=== PATIENT | male | born 1940 | race Caucasian/White ===

== ENCOUNTER 2016-06-22 13:56 | Emergency (ER) | payer MEDICARE, OTHER ==
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
[2016-06-22 18:00] VITALS: BP 161/89; TEMP 97.5; O2SAT 95
== END 2016-06-22 16:25 | disposition home or self-care (01) ==
LOC: ER 13:56
DX: S00.93XA Contusion of unspecified part of head, initial encounter (principal); Z88.3 Allergy status to other anti-infective agents; Z88.0 Allergy status to penicillin; Z88.8 Allergy status to other drugs, medicaments and biological substances; Z79.02 Long term (current) use of antithrombotics/antiplatelets; Z86.711 Personal history of pulmonary embolism; Z86.718 Personal history of other venous thrombosis and embolism; Z87.891 Personal history of nicotine dependence; W22.8XXA Striking against or struck by other objects, initial encounter

== ENCOUNTER → 2016-08-09 | Outpatient (CLI) | payer MEDICARE, OTHER | END | disposition home or self-care (01) | LOC: GMA 14:25 | PROVIDERS: ATTEND Nurse Practitioner Acute Care | DX: L02.416 Cutaneous abscess of left lower limb (principal) ==

== ENCOUNTER → 2016-10-28 | Outpatient (CLI) | payer MEDICARE, OTHER | END | disposition home or self-care (01) | LOC: GMAM 14:41 | PROVIDERS: ATTEND Family Medicine | DX: E34.9 Endocrine disorder, unspecified (principal) ==

== ENCOUNTER → 2017-01-20 | Outpatient (CLI) | payer MEDICARE, OTHER | END | disposition home or self-care (01) | LOC: GMA 11:26 | PROVIDERS: ATTEND Nurse Practitioner Acute Care | DX: M06.9 Rheumatoid arthritis, unspecified (principal); E53.9 Vitamin B deficiency, unspecified; I10 Essential (primary) hypertension; D64.9 Anemia, unspecified; R42 Dizziness and giddiness; E55.9 Vitamin D deficiency, unspecified; D51.3 Other dietary vitamin B12 deficiency anemia ==

== ENCOUNTER → 2017-06-16 | Outpatient (CLI) | payer MEDICARE, OTHER ==
--- NOTE | 2017-06-16 12:48 | MRI ---
EXAM DESCRIPTION: Lumbar Spine w/o Contrast MRI. CLINICAL HISTORY: RADICULOPATHY COMPARISON: MRI scan lumbar spine 02/24/2010. TECHNIQUE: Multiplanar, multiple standard sequences, non contrast MRI, lumbar spine. FINDINGS: L5-S1: Disc desiccation and anterior bulging. Posterior disc space loss and Modic type II endplate reactive changes. Grade 1 anterolisthesis. Posterior midline disc osteophyte bulge 4 mm abutting the thecal sac. Lateral recess stenosis on the right. Disc bulges into the bilateral foramina with stenosis more severe on the left. Impingement exiting left L5 nerve. Posterior flavum ligament hypertrophy. Moderate canal narrowing. L4-5: Disc desiccation and moderate disc space loss. Anterior bulging and endplate ridging. Posterior midline and right paramedian Modic type II endplate reactive changes. Posterior bilateral ligament hypertrophy more on the left. Moderate left foraminal narrowing. Severe right foraminal stenosis secondary to disc osteophyte complex encroachment with impingement exiting right L4 nerve. Superior L4 Schmorl's node. L3-4: Disc desiccation and posterior disc space loss. Anterior bulging and endplate ridging. Inferior L3 central Schmorl's node. Posterior broad-based disc bulge with midline 5 mm protrusion abutting the thecal sac. Bulge causing right lateral stenosis and impingement of the descending right L4 nerve. Bilateral ligament hypertrophy and mild central canal stenosis. Disc bulging of the right foramen with moderate narrowing. Mild to moderate narrowing left foramen with disc bulge. L2-3: Moderate disc space loss and disc desiccation. Large anterior bulge and endplate ridging. Schmorl's nodes larger inferior L2 and superior L3. Posterior midline Modic type II endplate reactive changes. Posterior broad-based 4 mm disc bulge abutting the thecal sac small right paracentral 5 mm protrusion abutting the thecal sac and the descending right L3 nerve encroaching on the lateral recess. Disc bulge into the bilateral foramina with moderate narrowing. Minimal flavum ligament hypertrophy bilaterally and effacement of the subarticular recesses. Stable nodular density focus posterior L2 vertebral body. L1-2: Mild disc desiccation and anterior bulging. Disc space preserved with no posterior bulging. Posterior elements unremarkable. Canal and foramina are patent. Conus terminates at L1. T12-L1: Minimal disc desiccation and disc space loss. Anterior bulging with endplate ridging. Posterior elements are negative. Canal and foramina are patent. Paravertebral soft tissues paraspinal muscle atrophy.. Normal marrow signal in the remaining vertebral bodies and the posterior elements. Vertebral bodies are not compressed at any level. IMPRESSION: 1. Spondylosis has increased at L5-S1 since the prior study. Bilateral foraminal stenosis is progressed especially on the left. Impinging the exiting left L5 nerve. 2. Progressive spondylosis posterior midline and right endplate margins at L4-5 since the prior study. Right foraminal stenosis is progressed since the prior study with impingement exiting right L4 nerve. Schmorl's nodes. 3. Progressive endplate changes at L3-4 since the prior study with increased disc space narrowing and enlarging posterior disc bulge and protrusion. Progressive stenosis right lateral recess and impingement descending right L4 nerve. 4. Endplate changes at L2-3 showing slight progression since the prior study. Posterior broad-based bulge and encroachment on the right lateral recess and descending right L3 nerve is stable. Electronically signed by: Nathaniel Ariza MD 06/16/2017 12:48 PM [facility]
== END ==
LOC: MRI 10:00
PROVIDERS: ATTEND Family Medicine
DX: M54.16 Radiculopathy, lumbar region (principal); M48.062 Spinal stenosis, lumbar region with neurogenic claudication; M47.896 Other spondylosis, lumbar region; M25.551 Pain in right hip

== ENCOUNTER → 2017-08-25 | Outpatient (CLI) | payer MEDICARE, OTHER | LOC: GMAM 10:44 | PROVIDERS: ATTEND Family Medicine | DX: D50.0 Iron deficiency anemia secondary to blood loss (chronic) (principal); E55.9 Vitamin D deficiency, unspecified; I10 Essential (primary) hypertension; R73.9 Hyperglycemia, unspecified; Z12.5 Encounter for screening for malignant neoplasm of prostate | CPT/HCPCS: 82306; 82728; 83540; 83550; G0103 ==

== ENCOUNTER 2017-09-01 23:10 | Emergency (ER) | payer MEDICARE ==
[2017-09-01 23:31] VITALS: TEMP 97.6
[2017-09-01] MEDS ORDERED: methylPREDNISolone SODIUM SUC 125 MG/2 ML VIAL IM ONE (23:41)
--- NOTE | 2017-09-01 23:45 | ED.PDOC ---
History of Present Illness - General Chief Complaint: Allergic Reaction Stated Complaint: allergic reaction Time Seen by Provider: 09/01/17 23:40 Source: patient Exam Limitations: no limitations - History of Present Illness Initial Comments: THIS PATIENT IS HERE BECAUSE OF AN ALLERGIC REACTION. EVIDENTLY HE HAS DEVELOPED AN OLECRANON BURSITIS EN THE LEFT ELBOW AND WAS GIVEN INITIALLY BACTRIM DS. HE DEVELOPED AN ALLERGY. HIS DOCTOR CHANGED IT TO Z-PACK AND AFTER THE FIRST TWO INITIAL PILLS HE DEVELOPED A RASH ON THE TRUNCK. HE IS NOW ITCHING AND C/O OF ALLERGIC REACTION. Timing/Duration: 1 week Severity: moderate Improving Factors: nothing Worsening Factors: nothing Associated Symptoms: denies symptoms Allergies/Adverse Reactions: Allergies Azithromycin [From Zithromax] Allergy (Verified 09/01/15 11:38) Cephalexin [From Keflex] Allergy (Verified 09/01/15 11:36) Lisinopril Allergy (Verified 09/01/15 11:37) Metoprolol [From Toprol XL] Allergy (Verified 06/22/16 14:17) Monosodium Glutamate Allergy (Verified 06/22/16 14:17) Pantoprazole [From Protonix] Allergy (Verified 09/01/15 11:37) Penicillins Allergy (Verified 06/22/16 14:17) Anaphylaxis Meperidine [From Demerol HCl] Adverse Reaction (Intermediate, Verified 06/22/16 14:17) Other Makes him "go crazy" Magnesium Salicylate [From Msg] Adverse Reaction (Mild, Verified 06/22/16 14:17) Elevates BP Rosuvastatin [From Crestor] Adverse Reaction (Verified 06/22/16 14:17) elevated BP Home Medications: Ambulatory Orders Prednisone [Leonel] 5 mg PO BID 11/06/12 Rivaroxaban [Xarelto] 10 mg PO DAILY 05/21/13 Cholecalciferol [D3 2000] 6,000 unit PO DAILY 09/01/15 Testosterone Cypionate [Depo-Testosterone] 50 mg IM WKLY 09/01/15 Prednisone [Deltasone] 20 mg PO DAILY 10 Days tab 09/01/17 hydrOXYzine HCl [Atarax] 25 mg PO BID #10 tab 09/01/17 Review of Systems - Review of Systems Constitutional: States: no symptoms reported EENTM: States: mouth swelling Respiratory: States: no symptoms reported Cardiology: States: no symptoms reported Gastrointestinal/Abdominal: States: no symptoms reported Genitourinary: States: no symptoms reported Musculoskeletal: States: no symptoms reported Skin: States: rash Neurological: States: no symptoms reported Endocrine: States: no symptoms reported Hematologic/Lymphatic: States: no symptoms reported Past Medical History (General) - Patient Medical History Hx Seizures: No Hx Stroke: No Hx Dementia: No Hx Asthma: No Hx of COPD: No Hx Cardiac Disorders: No Hx Congestive Heart Failure: No Hx Pacemaker: No Hx Hypertension: Yes Hx Thyroid Disease: No Hx Diabetes: No Hx Gastroesophageal Reflux: No Hx Renal Disease: No Hx Cancer: No Hx of HIV: No Hx Hepatitis C: No Hx MRSA: No - Vaccination History Hx Tetanus, Diphtheria Vaccination: Yes - 2017 Hx Influenza Vaccination: Yes Hx Pneumococcal Vaccination: Yes - Social History Hx Tobacco Use: Yes Hx Chewing Tobacco Use: No Hx Alcohol Use: Yes Hx Substance Use: No Hx Substance Use Treatment: No Hx Depression: No Hx Physical Abuse: No Hx Emotional Abuse: No Hx Suspected Abuse: No Family Medical History - Family History Father Living Status: Hx Family Cancer: Yes - colon Mother Family History: No Known Physical Exam - Physical Exam General Appearance: Alert, Restless, Well Developed, Well Groomed, Well Hydrated Eye Exam: bilateral normal Ears, Nose, Throat: hearing grossly normal, other - TONGUE HAS MINIMAL SWELLING Neck: non-tender Respiratory: chest non-tender Cardiovascular/Chest: normal peripheral pulses, no edema Peripheral Pulses: radial,right: 2+ Gastrointestinal/Abdominal: normal bowel sounds, non tender, soft, no organomegaly, no pulsatile mass Rectal Exam: deferred Back Exam: normal inspection Extremity: normal range of motion, non-tender, normal inspection Neurologic: no motor/sensory deficits, alert, normal mood/affect, oriented x 3 Skin Exam: rash - TO THE TRUNK Lymphatic: no adenopathy Departure - Departure Clinical Impression: Dermatitis medicamentosa Time of Disposition: 23:48 Disposition: Discharge to Home or Self Care Condition: Good Departure Forms: ED Discharge - Pt. Copy, Patient Portal Self Enrollment Instructions: DI for General Allergic Reactions Diet: resume usual diet Referrals: Hood Boston MD [Primary Care Provider] - 1-2 Weeks Prescriptions: hydrOXYzine HCl [Atarax] 25 mg PO BID #10 tab Prednisone [Deltasone] 20 mg PO DAILY 10 Days tab Home Medications: Ambulatory Orders Prednisone [Leonel] 5 mg PO BID 11/06/12 Rivaroxaban [Xarelto] 10 mg PO DAILY 05/21/13 Cholecalciferol [D3 2000] 6,000 unit PO DAILY 09/01/15 Testosterone Cypionate [Depo-Testosterone] 50 mg IM WKLY 09/01/15 Prednisone [Deltasone] 20 mg PO DAILY 10 Days tab 09/01/17 hydrOXYzine HCl [Atarax] 25 mg PO BID #10 tab 09/01/17
[2017-09-02 00:08] VITALS: BP 147/75; O2SAT 96
== END 2017-09-02 00:08 | disposition home or self-care (01) ==
LOC: ER 23:10
DX: L27.0 Generalized skin eruption due to drugs and medicaments taken internally (principal); T36.3X5A Adverse effect of macrolides, initial encounter; I10 Essential (primary) hypertension; Z87.891 Personal history of nicotine dependence

== ENCOUNTER → 2017-09-08 | Outpatient (CLI) | payer MEDICARE, OTHER | LOC: GMAM 14:24 | PROVIDERS: ATTEND Family Medicine | DX: E29.1 Testicular hypofunction (principal) ==

== ENCOUNTER → 2017-11-11 | Outpatient (CLI) | payer MEDICARE, OTHER | LOC: GMAM 11:54 | PROVIDERS: ATTEND Family Medicine | DX: E53.8 Deficiency of other specified B group vitamins (principal) ==

== ENCOUNTER → 2017-12-30 | Outpatient (CLI) | payer MEDICARE, OTHER | LOC: LAB.O 12:20 | PROVIDERS: ATTEND Orthopaedic Surgery | DX: Z01.818 Encounter for other preprocedural examination (principal) ==

== ENCOUNTER 2018-02-08 05:51 | Day surgery (SDC) | payer MEDICARE, OTHER ==
--- NOTE | 2018-01-09 07:58 | HP ---
CHIEF COMPLAINT: Left elbow pain. HISTORY OF PRESENT ILLNESS: Mr. Bergeron is a 77-year-old male with a swelling in the left elbow. He has had intermittent drainage from this that he says is on a daily basis. He says the drainage is clear in nature and he has never had any purulence or erythema. There is some occasional pain, but it is relatively minor. He has had compressive dressings on this area for olecranon bursitis, however, the wound has failed to close and he continues to have drainage. Because of the failure of it to close, he has requested operative intervention. After discussing the risks, benefits and alternatives to that, the patient has given informed consent for bursectomy with closure of wound. PAST SURGICAL HISTORY: None. MEDICATIONS: 1. Prednisone. 2. Xarelto. 3. Restoril. ALLERGIES: NO KNOWN DRUG ALLERGIES. CODE STATUS: Full code. IMMUNIZATIONS: Up to date. FAMILY HISTORY: None pertinent to today's complaint. SOCIAL HISTORY: The patient does not drink or use any illicit drugs. He does smoke. REVIEW OF SYSTEMS: Negative except as indicated in the History of Present Illness. PHYSICAL EXAMINATION: VITAL SIGNS: Blood pressure 152/86. Pulse 80. Height 5'10". Weight 144 pounds. MENTAL STATUS: The patient is awake, alert, and is able to give a good history and participate in the physical. The patient is oriented to person, place and time. SKIN: Normal tone and turgor. MUSCULOSKELETAL: He has no erythema or current drainage at the wound, but he does have an obvious punctate area that has had recent drainage. Today, he has no significant pain to palpation. The wound is 3 to 4 mm over the central portion of the olecranon. He maintains full range of motion of the elbow. Unit Coordinator strength is 5/5. Sensation is intact. ASSESSMENT: 1. Olecranon bursitis. PLAN: The plan at this point is for bursectomy. We have discussed the risks, benefits, and alternatives to that and the patient has given informed consent. #[id number] [facility]
--- NOTE | 2018-01-30 11:06 | HP ---
CHIEF COMPLAINT: Left elbow pain. HISTORY OF PRESENT ILLNESS: Mr. Bergeron is a 77-year-old male with a history of swelling in the left elbow. He has had intermittent drainage from that area. He says it is there on a daily basis. The drainage has always been clear to straw-colored. He has never had any purulence that he knows of. It does drain what he says is a couple of tablespoons a day. Because of the ongoing drainage , he has requested operative intervention. After discussing the risks, benefits and alternatives to bursectomy, the patient has given informed consent. PAST SURGICAL HISTORY: None. MEDICATIONS: 1. Prednisone. 2. Xarelto. 3. Restoril. ALLERGIES: NO KNOWN DRUG ALLERGIES. CODE STATUS: Full code. IMMUNIZATIONS: Up to date. FAMILY HISTORY: None pertinent to today's complaint. SOCIAL HISTORY: The patient does not drink or use any illicit drugs. He does smoke. REVIEW OF SYSTEMS: Negative except as indicated in the History of Present Illness. PHYSICAL EXAMINATION: VITAL SIGNS: Blood pressure 138/70. Pulse 80. Height 5'10". Weight 148 pounds. MENTAL STATUS: The patient is awake, alert, and is able to give a good history and participate in the physical. The patient is oriented to person, place and time. SKIN: Normal tone and turgor. MUSCULOSKELETAL: He has about a 2 to 3 mm wound overlying the posterior aspect of the elbow. There is some straw-colored fluid that is thin in nature. There is no erythema and no purulence. He has full range of motion of the elbow. Sensation is intact. Strength is 5/5. There is no deformity other than the swelling. It is warm and well perfused. ASSESSMENT: 1. Olecranon bursitis. PLAN: The plan at this point is for excision. We have discussed the risks, benefits, and alternatives to that and the patient has given informed consent. #[id number] [facility]
[2018-02-08] MEDS ORDERED: SODIUM CHLORIDE 0.9% 250ML 250 ML ONE (06:04)
[2018-02-08] MEDS ORDERED: VANCOMYCIN HCL INJ 1,000 MG VIAL IVPB ONE ×3 (06:04→11:01)
[2018-02-08] MEDS ORDERED: BUPIVACAINE LIPOSOME 13.3 MG/ML VIAL INJ ONE (06:54)
[2018-02-08] MEDS ORDERED: BUPIVACAINE 0.5% 30 ML VIAL INJ ONE (06:55)
[2018-02-08] MEDS ORDERED: ONDANSETRON INJ 4 MG/2 ML VIAL ONE (07:00)
[2018-02-08] MEDS ORDERED: LIDOCAINE 1% 10 ML VIAL INJ ONE (07:00)
[2018-02-08] MEDS ORDERED: PROPOFOL 200 MG/20 ML VIAL IV ONE (07:00)
[2018-02-08] MEDS: LACTATED RINGERS 1,000 ML ONE ×2 (08:40→11:52)
[2018-02-08] MEDS ORDERED: LACTATED RINGERS 1,000 ML ONE (10:29)
[2018-02-08] MEDS ORDERED: MIDAZOLAM INJ 2 MG/2 ML VIAL ONE (10:31)
[2018-02-08] MEDS ORDERED: fentaNYL CITRATE INJ 50 MCG/ML AMP ONE (10:32)
[2018-02-08] MEDS ORDERED: LEVALBUTEROL NEBS 1.25 MG/3 ML VIAL NEB ONE (12:23)
[2018-02-08 13:29] VITALS: BP 138/72; TEMP 98
[2018-02-08 15:21] VITALS: O2SAT 99
--- NOTE | 2018-02-09 10:08 | OP ---
DATE OF PROCEDURE: 02/08/18 PREOPERATIVE DIAGNOSIS: 1. Olecranon bursitis. POSTOPERATIVE DIAGNOSIS: 1. Olecranon bursitis. PROCEDURE: 1. Bursectomy. SURGEON: Quentin Mccarthy MD. FUR POINTER: Nathaniel Thompson CST, SA-C. ANESTHESIA: Local with sedation. COMPLICATIONS: None. FINDINGS: Hypertrophic bursa with chronic draining wound. INDICATION: Mr. Bergeron has a long history of draining wound on the posterior aspect of the elbow. He has had this going on for several months and he has essentially treated it with just dressing changes. He denies any trauma associated with that. Because of the presence of the wound and the failure of conservative measures, he has requested operative intervention. After discussing the risks, benefits and alternatives to that, the patient has given informed consent. PROCEDURE: The patient was brought to the Operating Room and placed in supine position. Anesthesia was induced and the patient's arm was sterilely prepped and draped. Following prepping and draping, an incision was made directly overlying the area of the bursa encompassing the draining sinus. Dissection was carried down and the bursa was cored out bluntly. Following identification and removal of the bursa, the wound was very thoroughly irrigated. The bursa was sent for culture and pathology. Following irrigation, the wound was closed with a combination of interrupted and subcuticular stitches as well as Nylon. Sterile dressings were placed. The patient was awaken from anesthesia and taken to Recovery. POSTOPERATIVE PLAN: The patient will be on p.o. antibiotics until we receive culture results. He will followup with us in two days. #[id number] [facility]
== END 2018-02-08 13:15 | disposition home or self-care (01) ==
LOC: AMB 05:51
PROVIDERS: ATTEND Orthopaedic Surgery
DX: M70.22 Olecranon bursitis, left elbow (principal); I10 Essential (primary) hypertension; E11.9 Type 2 diabetes mellitus without complications; N52.9 Male erectile dysfunction, unspecified; F17.210 Nicotine dependence, cigarettes, uncomplicated; Z79.01 Long term (current) use of anticoagulants; Z79.899 Other long term (current) drug therapy
CPT/HCPCS: 01710; 24105; 87070; 87077; 87186; 88305; 94640; J2250; J2405; J3010; J3370; J3490; J7050; J7120; J7614

== ENCOUNTER → 2018-03-06 | Outpatient (CLI) | payer MEDICARE, OTHER | LOC: GMAM 18:58 | PROVIDERS: ATTEND Family Medicine | DX: R06.00 Dyspnea, unspecified (principal) ==

== ENCOUNTER → 2018-03-07 | Outpatient (CLI) | payer MEDICARE, OTHER ==
--- NOTE | 2018-03-07 10:38 | US ---
EXAM DESCRIPTION: Venous,Lower Extremity RT CLINICAL HISTORY: LOWER LEG EDEMA COMPARISON: None Available. TECHNIQUE: Right lower extremity venous duplex FINDINGS: There is no DVT identified. There is normal color flow observed with good flow augmentation. All deep veins compress normally. IMPRESSION: 1. Negative for DVT in the right lower extremity. Electronically signed by: Amarjit Freeman MD 03/07/2018 10:36 AM [employer]
--- NOTE | 2018-03-07 18:45 | RAD ---
EXAM DESCRIPTION: Foot,Right 3 Views CLINICAL HISTORY: LOWER LIMB EDEMA COMPARISON: None. TECHNIQUE: AP, lateral, and oblique images right foot. FINDINGS: Moderate right hallux valgus with joint space narrowing and subchondral bone loss on the metatarsal head. Joint space loss in the IP joint. Marked arthropathy of the right fifth metatarsal phalangeal joint with marginal erosions and subchondral radiolucency. Narrowing of the joint space. Numerous areas of radiolucency in the head of the fourth metatarsal but the joint space is maintained.. Overall bone density is decreased. No definite fractures. No abnormal radiodense objects in the soft tissues. Marginal spurs on the intertarsal joints. IMPRESSION: 1. Moderate hallux valgus with subchondral radiolucencies. 2. Marked deformity of the head of the right fifth metatarsal abutting the joint space with large marginal erosions and subchondral radiolucencies. Similar process in the earlier stage in the fourth metatarsophalangeal joint. 3. No acute bony abnormality or large soft tissue mass. Electronically signed by: Nathaniel Ariza MD 03/07/2018 6:43 PM [facility]
== END ==
LOC: US 09:42
PROVIDERS: ATTEND Family Medicine
DX: R60.0 Localized edema (principal); M20.11 Hallux valgus (acquired), right foot; M21.6X1 Other acquired deformities of right foot

== ENCOUNTER → 2018-03-10 | Outpatient (CLI) | payer MEDICARE, OTHER ==
--- NOTE | 2018-03-10 09:32 | MRI ---
MRI right foot without contrast INDICATION: Foot and ankle pain and swelling TECHNIQUE: Noncontrast MR imaging right foot FINDINGS: There is an osteochondral lesion lateral talar dome measuring 15 mm wide by 15 mm AP dimension. There is subchondral edema and cystic change indicating overlying chondrosis. No unstable osseous fragment noted. Mild osteoarthrosis of the ankle overall. Achilles and plantar aponeurosis are intact. There is metatarsus varus hallux valgus with lateral subluxation of hallux sesamoids. Extensive cystic changes or cystic erosions across the MTP joints. Multifocal subchondral edema throughout the midfoot especially the navicular cuneiform articulations as well as the second TMT compartment. These are most likely due to osteoarthrosis although a pre-existing inflammatory arthritis is a consideration. No acute fracture or aggressive destructive lesion noted. There is diffuse edema in Kager's fat pad which is nonspecific typically seen with para tendinitis of the Achilles. No acute ligament disruption. No acute tendon disruption. IMPRESSION: Multifocal osteoarthrosis throughout the foot see above detailed discussion Metatarsus varus hallux valgus with lateral subluxation of the hallux sesamoids Osteochondral lesion lateral talar dome 15 mm in diameter with subchondral edema and cystic change Electronically signed by: Thanh Aranda MD 03/10/2018 9:30 AM [employer]
== END ==
LOC: MRI 08:00
PROVIDERS: ATTEND Family Medicine
DX: M19.071 Primary osteoarthritis, right ankle and foot (principal); M20.31 Hallux varus (acquired), right foot; M94.8X7 Other specified disorders of cartilage, ankle and foot; M25.579 Pain in unspecified ankle and joints of unspecified foot

== ENCOUNTER → 2018-04-13 | Outpatient (CLI) | payer MEDICARE, OTHER ==
--- NOTE | 2018-04-13 11:19 | CT ---
EXAM DESCRIPTION: Chest w/Contrast CLINICAL HISTORY: 77 years Male, COPD COMPARISON: Chest radiograph 08/31/2015. CTA chest 12/07/2012. TECHNIQUE: CT images through the chest with IV contrast. Multiplanar reformations were provided. This exam was performed according to our departmental dose-optimization program, which includes automated exposure control, adjustment of the mA and/or kV according to patient size and/or use of iterative reconstruction technique. CT CHEST FINDINGS: Heart and mediastinum: Heart is borderline large. No significant pericardial effusion. Small hiatal hernia. Esophagus is nondilated. No mediastinal or hilar lymphadenopathy. Mild atherosclerosis within the aorta. No significant coronary calcification. Thyroid Gland: Normal. Lungs: Mild paraseptal emphysematous changes bilaterally. Airways: No airway filling defects. Mild bronchiectasis throughout both lungs with no bronchial wall thickening. Pleura: No effusion or pneumothorax. Subphrenic Structures: There is diffuse hypoattenuation of the liver parenchyma. Multiple 4 mm gallstones are present. No biliary duct dilatation appreciated. Musculoskeletal and Soft Tissues: Chronic posterior lateral right fifth, sixth, seventh rib fractures. Degenerative changes of the spine with no acute fracture or aggressive appearing osseous lesion. Moderately exaggerated kyphosis of the upper thoracic spine. Soft tissues are unremarkable. IMPRESSION: 1. No acute abnormality of the chest. 2. Emphysema. 3. Small hiatal hernia. 4. Hepatic steatosis. 5. Cholelithiasis. Electronically signed by: Mart De Dios MD 04/13/2018 11:18 AM [employer]
== END ==
LOC: CT 08:49
PROVIDERS: ATTEND Family Medicine
DX: J44.9 Chronic obstructive pulmonary disease, unspecified (principal); F17.228 Nicotine dependence, chewing tobacco, with other nicotine-induced disorders; K44.9 Diaphragmatic hernia without obstruction or gangrene; K80.20 Calculus of gallbladder without cholecystitis without obstruction; K76.0 Fatty (change of) liver, not elsewhere classified; Z79.899 Other long term (current) drug therapy

== ENCOUNTER → 2018-05-06 | Outpatient (CLI) | payer MEDICARE, OTHER ==
--- NOTE | 2018-05-06 11:12 | RAD ---
EXAM DESCRIPTION: Chest,2 Views CLINICAL HISTORY: 77 years Male COUGH COMPARISON: Two view chest dated 08/16/2017 TECHNIQUE: PA and lateral views of the chest are obtained. FINDINGS: Heart: The heart is normal in size and configuration. [] Vasculature: The aorta is mildly tortuous. The pulmonary vascularity is normal. Mediastinum: Unremarkable otherwise. No evidence of mass or adenopathy. Lungs: There is no focal consolidation in the lungs. [Mild fibrotic scarring noted in the right lower lung]. Suspect subtle density projecting in the left costophrenic angle results from a confluence of shadows. Pleural spaces: There are no pleural effusions. There are no pneumothoraces. Osseous structures: There is no evidence of acute fracture, osseous destruction or osteoblastic lesions. Old right healed rib fractures again might are mild degenerative changes in the spine as well as underlying bone demineralization. Tubes and catheters: None. Upper abdomen: No acute findings. [] IMPRESSION: No acute cardiopulmonary abnormality. [] Remainder of findings as described above. EXAM DESCRIPTION: Chest,2 Views CLINICAL HISTORY: 77 years Male COUGH COMPARISON: None TECHNIQUE: AP and oblique views of the ribs are obtained. FINDINGS: The visualized lungs are clear with no evidence of acute consolidation. There is no evidence of pleural fluid or pneumothorax. Noted again are old fractures of the right fifth sixth and seventh ribs which are healed The osseous structures are otherwise intact. Specifically, the ribs show no evidence of acute fracture, osseous destruction or osteoblastic lesions. The soft tissues are intact without evidence of subcutaneous emphysema. There is severe narrowing of the right glenohumeral joint with eburnation indicating primary osteoarthritis. There is severe narrowing of the right acromiohumeral space with superior migration of the humeral head relative to the glenoid fossa which is consistent with rotator cuff degeneration. Incidental note is made of a couple contiguous calcifications in the right upper quadrant which could be gallbladder or renal calculi. There is a large amount of fecal content in the cecum and ascending colon. IMPRESSION: No acute osseous abnormalities. Remainder of findings as described above. Electronically signed by: Eugenie Nazario MD 05/06/2018 11:11 AM [facility]
--- NOTE | 2018-05-06 11:13 | RAD ---
EXAM DESCRIPTION: Bilateral Ribs CLINICAL HISTORY: 77 years Male SPRAIN OF RIBS COMPARISON: See combined dictations of the chest and ribs previously sent. Electronically signed by: Eugenie Nazario MD 05/06/2018 11:12 AM [facility]
== END ==
LOC: RAD 10:15
PROVIDERS: ATTEND Nurse Practitioner Family
DX: R05 Cough (principal); S23.41XA Sprain of ribs, initial encounter

== ENCOUNTER → 2018-08-18 | Outpatient (CLI) | payer MEDICARE, OTHER | LOC: GMATM 14:01 | PROVIDERS: ATTEND Nurse Practitioner Family | DX: R25.2 Cramp and spasm (principal) ==

== ENCOUNTER → 2018-09-12 | Outpatient (CLI) | payer MEDICARE, OTHER | LOC: GMAM 11:26 | PROVIDERS: ATTEND Family Medicine | DX: E53.9 Vitamin B deficiency, unspecified (principal); R53.82 Chronic fatigue, unspecified; E55.9 Vitamin D deficiency, unspecified; I10 Essential (primary) hypertension; R73.09 Other abnormal glucose; E78.2 Mixed hyperlipidemia; F52.21 Male erectile disorder; E29.1 Testicular hypofunction ==

== ENCOUNTER → 2019-09-21 | Outpatient (CLI) | payer MEDICARE, OTHER | LOC: GMAM 11:19 | PROVIDERS: ATTEND Family Medicine | DX: M06.9 Rheumatoid arthritis, unspecified (principal) ==

== ENCOUNTER → 2020-02-28 | Outpatient (CLI) | payer MEDICARE, OTHER | LOC: GMAM 10:50 | PROVIDERS: ATTEND Family Medicine | DX: E53.8 Deficiency of other specified B group vitamins (principal); E55.9 Vitamin D deficiency, unspecified; I10 Essential (primary) hypertension; E29.1 Testicular hypofunction ==

== ENCOUNTER → 2020-06-04 | Outpatient (CLI) | payer MEDICARE, OTHER ==
--- NOTE | 2020-06-05 12:03 | US ---
EXAM DESCRIPTION: Soft Tissue,Extremity: ULTRASOUND. CLINICAL HISTORY: 80 years Male GENERALIZED ABDOMINAL PAIN COMPARISON: None Available. TECHNIQUE: Transcutaneous scanning: Miller-scale and Doppler modes. Obtaining a difficult study. FINDINGS: Scanning the region of palpation in the left lower quadrant of the abdomen. Possible fatty tissue measuring 4.2 x 1.2 cm but no definite hernia. No fluid collection or dominant solid mass, no distinct cyst or fluid collection. Abdominal wall not well seen. IMPRESSION: Technically difficult study. Heterogeneous fatty tissue measuring 4.2 cm visualized but no definite hernia. No fluid collection. Electronically signed by: Nathaniel Ariza MD 06/05/2020 12:01 PM [employer] [employer] [facility]
== END ==
LOC: US 08:56
PROVIDERS: ATTEND Family Medicine
DX: R10.84 Generalized abdominal pain (principal); M79.9 Soft tissue disorder, unspecified